=== PATIENT | female | born 1955 | race Asian ===

== ENCOUNTER → 2016-09-29 | Outpatient (REF) | payer OTHER ==
[2016-09-29 14:39] LABS: ALBUMIN 3.8 GM/DL (3.2-5.2); ALBUMIN/GLOBULIN RATIO 0.97 (1.00-1.93); ALKALINE PHOSPHATASE 45 U/L (45-117); ALT/SGPT 29 U/L (12-78); ANION GAP 9 MEQ/L (8-16); AST/SGOT 16 U/L (15-37); BILIRUBIN,TOTAL 0.4 MG/DL (0.2-1.0); BLOOD UREA NITROGEN 16 MG/DL (7-18); CARBON DIOXIDE LEVEL 26 MEQ/L (21-32); CHLORIDE LEVEL 108 MEQ/L (98-107); CHOLESTEROL LEVEL 213 MG/DL (<200); CREATININE FOR GFR 0.66 MG/DL (0.55-1.02); GLOMERULAR FILTRATION RATE > 60.0 (>45); GLUCOSE, FASTING 110 MG/DL (80-110); POTASSIUM SERUM 4.1 MEQ/L (3.5-5.1); SODIUM LEVEL 143 MEQ/L (136-145); TOTAL PROTEIN 7.7 GM/DL (6.4-8.2); TRIGLYCERIDES LEVEL 133 MG/DL (<150)
== END ==
LOC: M SFHCCLAY 08:40
PROVIDERS: ATTEND Family Medicine
DX: I10 Essential (primary) hypertension (principal)

== ENCOUNTER → 2016-12-08 | Outpatient (CLI) | payer OTHER ==
--- NOTE | 2016-12-08 12:08 | REP ---
Clinical: Cough. Technique: PA and lateral. Comparison: None. Findings: Mediastinum and cardiac silhouette are normal. Lung driver suggest mild chronic changes without focal consolidation, effusion, or pneumothorax. Skeletal structures are intact. Impression: No acute cardiopulmonary process or focal consolidation. If the patient remains symptomatic consider chest CT for further investigation as no prior examinations are available for comparison.
== END ==
LOC: M CLY 11:41
PROVIDERS: ATTEND Family Medicine
DX: R05 Cough (principal)

== ENCOUNTER → 2017-04-01 | Outpatient (REF) | payer OTHER ==
[2017-04-01 11:44] LABS: ALBUMIN 3.9 GM/DL (3.2-5.2); ALBUMIN/GLOBULIN RATIO 1.08 (1.00-1.93); ALKALINE PHOSPHATASE 50 U/L (45-117); ALT/SGPT 34 U/L (12-78); ANION GAP 8 MEQ/L (8-16); AST/SGOT 21 U/L (7-37); BILIRUBIN,TOTAL 0.4 MG/DL (0.2-1.0); BLOOD UREA NITROGEN 14 MG/DL (7-18); CALCIUM LEVEL 8.9 MG/DL (8.8-10.2); CARBON DIOXIDE LEVEL 27 MEQ/L (21-32); CHLORIDE LEVEL 108 MEQ/L (98-107); CHOLESTEROL LEVEL 226 MG/DL (<200); CHOLESTEROL RISK RATIO 3.183 (<5); CREATININE FOR GFR 0.59 MG/DL (0.55-1.02); GLOMERULAR FILTRATION RATE > 60.0 (>45); GLUCOSE, FASTING 120 MG/DL (80-110); HDL CHOLESTEROL 71 MG/DL (>40); LDL CHOLESTEROL 129.8 MG/DL (<100); NON-HDL-C 155 MG/DL; SODIUM LEVEL 143 MEQ/L (136-145); TOTAL PROTEIN 7.5 GM/DL (6.4-8.2); TRIGLYCERIDES LEVEL 126 MG/DL (<150)
== END ==
LOC: M SFHCCLAY 07:54
DX: I10 Essential (primary) hypertension (principal)

== ENCOUNTER → 2017-10-04 | Outpatient (CLI) | payer OTHER | LOC: M WHC 12:39 | DX: C50.311 Malignant neoplasm of lower-inner quadrant of right female breast (principal); Z17.0 Estrogen receptor positive status [ER+]; Z79.899 Other long term (current) drug therapy | CPT/HCPCS: 77080 ==

== ENCOUNTER → 2018-04-19 | Outpatient (REF) | payer OTHER ==
[2018-04-19 12:56] LABS: BASO # 0.1 10^3/uL (0.0-0.2); BASO % 1.1 % (0.0-1.0); EOS # 0.2 10^3/uL (0.0-0.50); EOS % 3.2 % (0.0-3.0); HEMATOCRIT 45.8 % (36.0-47.0); HEMOGLOBIN 15.2 g/dl (12.0-15.5); LYMPH # 2.2 10^3/uL (1.5-4.5); LYMPH % 39.1 % (24.0-44.0); MEAN CORPUSCULAR HEMOGLOBIN 30.2 pg (27.0-33.0); MEAN CORPUSCULAR HGB CONC 33.2 g/dl (32.0-36.5); MEAN CORPUSCULAR VOLUME 91.1 fl (80.0-96.0); MONO # 0.3 10^3/uL (0.0-0.8); NEUTROPHILS # 2.9 10^3/uL (1.8-7.7); NEUTROPHILS % 50.2 % (36.0-66.0); PLATELET COUNT, AUTOMATED 295 10^3/uL (150-450); RED BLOOD COUNT 5.03 10^6/uL (4.00-5.40); WHITE BLOOD COUNT 5.7 10^3/uL (4.0-10.0)
[2018-04-19 13:35] LABS: ALT/SGPT 37 U/L (12-78); BILIRUBIN,TOTAL 0.4 MG/DL (0.2-1.0); BLOOD UREA NITROGEN 19 MG/DL (7-18); CALCIUM LEVEL 9.2 MG/DL (8.8-10.2); CARBON DIOXIDE LEVEL 24 MEQ/L (21-32); CHLORIDE LEVEL 107 MEQ/L (98-107); CHOLESTEROL LEVEL 245 MG/DL (<200); CHOLESTEROL RISK RATIO 3.223 (<5); CREATININE FOR GFR 0.61 MG/DL (0.55-1.30); GLOMERULAR FILTRATION RATE > 60.0 (>45); GLUCOSE, FASTING 97 MG/DL (70-100); HDL CHOLESTEROL 76 MG/DL (>40); LDL CHOLESTEROL 145 MG/DL (<100); NON-HDL-C 169 MG/DL; POTASSIUM SERUM 4.6 MEQ/L (3.5-5.1); SODIUM LEVEL 138 MEQ/L (136-145); TOTAL PROTEIN 8.1 GM/DL (6.4-8.2); TRIGLYCERIDES LEVEL 118 MG/DL (<150)
== END ==
LOC: M SFHCCLAY 09:19
PROVIDERS: ATTEND Family Medicine
DX: I10 Essential (primary) hypertension (principal); E78.2 Mixed hyperlipidemia; C50.112 Malignant neoplasm of central portion of left female breast

== ENCOUNTER → 2020-01-23 | Outpatient (REF) | payer OTHER ==
[2020-01-23 16:58] LABS: BLOOD UREA NITROGEN 13 MG/DL (7-18); CALCIUM LEVEL 9.1 MG/DL (8.8-10.2); CARBON DIOXIDE LEVEL 24 MEQ/L (21-32); CHLORIDE LEVEL 105 MEQ/L (98-107); CREATININE FOR GFR 0.71 MG/DL (0.55-1.30); GLOMERULAR FILTRATION RATE > 60.0 (>45); GLUCOSE, FASTING 125 MG/DL (70-100); POTASSIUM SERUM 3.9 MEQ/L (3.5-5.1); SODIUM LEVEL 137 MEQ/L (136-145)
== END ==
LOC: M SFHCCLAY 10:09
PROVIDERS: ATTEND Family Medicine
DX: I11.9 Hypertensive heart disease without heart failure (principal)

== ENCOUNTER → 2020-02-27 | Outpatient (CLI) | payer SELFPAY | LOC: M LABSMTC 14:11 | PROVIDERS: ATTEND Pediatrics | DX: Z20.828 Contact with and (suspected) exposure to other viral communicable diseases (principal) ==

== ENCOUNTER → 2020-04-06 | Outpatient (CLI) | payer SELFPAY | LOC: M LABSMTC 10:27 | PROVIDERS: ATTEND Pediatrics | DX: Z20.822 Contact with and (suspected) exposure to COVID-19 (principal) ==

== ENCOUNTER → 2020-04-21 | Outpatient (CLI) | payer SELFPAY | LOC: M LABSMTC 10:17 | PROVIDERS: ATTEND Pediatrics | DX: Z20.822 Contact with and (suspected) exposure to COVID-19 (principal) ==

== ENCOUNTER 2020-04-28 10:21 | Emergency (ER) | payer OTHER ==
[~2020-04-28] VITALS: Ht 152.4 cm; Wt 88.9 kg
[~2020-04-28 10:21] MED LIST: LISI20TA33 PO
[2020-04-28] MEDS ORDERED: CHLO125TA (10:30)
--- OUTSIDE RECORDS SUMMARY | 2020-04-28 10:38 | CCD ---
Author Author [facility] Organization [facility] Address Unknown Phone Unavailable Care Team Providers Care Manager Baby Name Role Phone Ellne De nAda MD Unavailable Unavailable Ellen De Anda MD Unavailable Unavailable Ellen De Anda MD Unavailable Unavailable SivEllen tellez MD Unavailable Unavailable Ellen De Anda MD Unavailable Unavailable Ellen De Anda MD Unavailable Unavailable Ellen De Anda MD Unavailable Unavailable Ellen De Anda MD Unavailable Unavailable Ellen De Anda MD Unavailable Unavailable Ellen De Anda MD Unavailable Unavailable Ellen De Anda MD Unavailable Unavailable Ellen De Anda MD Unavailable Unavailable Ellen De Anda MD Unavailable Unavailable Ellen De Anda MD Unavailable Unavailable Ellen De Anda MD Unavailable Unavailable Ellen De Anda MD Unavailable Unavailable Ellen De Anda MD Unavailable Unavailable Sivapiragasam, Abirami MD Unavailable Unavailable Sivapiragasam, Abirami MD Unavailable Unavailable Sivapiragasam, Abirami MD Unavailable Unavailable Sivapiragasam, Abirami MD Unavailable Unavailable Sivapiragasam, Abirami MD Unavailable Unavailable Sivapiragasam, Abirami MD Unavailable Unavailable Sivapiragasam, Abirami MD Unavailable Unavailable Sivapiragasam, Abirami MD Unavailable Unavailable Sivapiragasam, Abirami MD Unavailable Unavailable Sivapiragasam, Abirami MD Unavailable Unavailable Sivapiragasam, Abirami MD Unavailable Unavailable Sivapiragasam, Abirami MD Unavailable Unavailable Sivapiragasam, Abirami MD Unavailable Unavailable Sivapiragasam, Abirami MD Unavailable Unavailable Sivapiragasam, Abirami MD Unavailable Unavailable Sivapiragasam, Abirami MD Unavailable Unavailable Sivapiragasam, Abirami MD Unavailable Unavailable Sivapiragasam, Abirami MD Unavailable Unavailable Sivapiragasam, Abirami MD Unavailable Unavailable Sivapiragasam, Abirami MD Unavailable Unavailable Sivapiragasam, Abirami MD Unavailable Unavailable Sivapiragasam, Abirami MD Unavailable Unavailable Sivapiragasam, Abirami MD Unavailable Unavailable Sivapiragasam, Abirami MD Unavailable Unavailable Sivapiragasam, Abirami MD Unavailable Unavailable Sivapiragasam, Abirami MD Unavailable Unavailable Sivapiragasam, Abirami MD Unavailable Unavailable Sivapiragasam, Abirami MD Unavailable Unavailable Sivapiragasam, Abirami MD Unavailable Unavailable Sivapiragasam, Abirami MD Unavailable Unavailable Sivapiragasam, Abirami MD Unavailable Unavailable Sivapiragasam, Abirami MD Unavailable Unavailable Sivapiragasam, Abirami MD Unavailable Unavailable Feola, T Marya PA Unavailable Unavailable Feola, T Marya PA Unavailable Unavailable Feola, T Marya PA Unavailable Unavailable Feola, T Marya PA Unavailable Unavailable Feola, T Marya PA Unavailable Unavailable Feola, T Marya PA Unavailable Unavailable Feola, T Marya PA Unavailable Unavailable Feola, T Marya PA Unavailable Unavailable Feola, T Marya PA Unavailable Unavailable Feola, T Marya PA Unavailable Unavailable Feola, T Marya PA Unavailable Unavailable Feola, T Marya PA Unavailable Unavailable Feola, T Marya PA Unavailable Unavailable Feola, T Marya PA Unavailable Unavailable Feola, T Marya PA Unavailable Unavailable Feola, T Mayra PA Unavailable Unavailable Feola, T Marya PA Unavailable Unavailable Feola, T Marya PA Unavailable Unavailable Feola, T Marya PA Unavailable Unavailable Feola, T Marya PA Unavailable Unavailable Feola, T Marya PA Unavailable Unavailable Feola, T Marya PA Unavailable Unavailable Feola, T Marya PA Unavailable Unavailable Feola, T Marya PA Unavailable Unavailable Feola, T Marya PA Unavailable Unavailable Feola, T Marya PA Unavailable Unavailable Feola, T Marya PA Unavailable Unavailable Feola, T Marya PA Unavailable Unavailable Feola, T Marya PA Unavailable Unavailable Feola, T Marya PA Unavailable Unavailable Feola, T Marya PA Unavailable Unavailable Feola, T Marya PA Unavailable Unavailable Feola, T Marya PA Unavailable Unavailable Feola, T Marya PA Unavailable Unavailable Feola, T Marya PA Unavailable Unavailable Feola, T Marya PA Unavailable Unavailable Feola, T Marya PA Unavailable Unavailable Re-disclosure Warning The records that you are about to access may contain information from federally-assisted alcohol or drug abuse programs. If such information is present, then the following federally mandated warning applies: This information has been disclosed to you from records protected by federal confidentiality rules (42 CFR part 2). The federal rules prohibit you from making any further disclosure of this information unless further disclosure is expressly permitted by the written consent of the person to whom it pertains or as otherwise permitted by 42 CFR part 2. A general authorization for the release of medical or other information is NOT sufficient for this purpose. The Federal rules restrict any use of the information to criminally investigate or prosecute any alcohol or drug abuse patient.The records that you are about to access may contain highly sensitive health information, the redisclosure of which is protected by Article 27-F of the [facility] Public Health law. If you continue you may have access to information: Regarding HIV / AIDS; Provided by facilities licensed or operated by the [facility] Office of Mental Health; or Provided by the [facility] Office for People With Developmental Disabilities. If such information is present, then the following [facility] mandated warning applies: This information has been disclosed to you from confidential records which are protected by state law. State law prohibits you from making any further disclosure of this information without the specific written consent of the person to whom it pertains, or as otherwise permitted by law. Any unauthorized further disclosure in violation of state law may result in a fine or detention sentence or both. A general authorization for the release of medical or other information is NOT sufficient authorization for further disc losure. Allergies and Adverse Reactions Type Description Substance Reaction Status Data Source(s ) Drug Class NO KNOWN ALLERGIES NO KNOWN ALLERGIES [facility] Family History Family Member Name Family Member Gender Family Member Status Date o f Status Description Data Source(s) Unknown Male Problem MEDENT ([facility], ) Encounters Encounter Providers Location Date Indications Data Source(s ) Outpatient Attender: Ellen De Anda MD 08/27/2020 1 2:00:00 AM [facility] O Attender: Marya QUICK 021 01:34:12 PM EST - 04/18/2020 03:43:25 PM EST [facility] ([facility] ) [place] [address] [address] 02/04/2020 12:00:00 AM EST eCW1 ([facility]) Outpatient [address] [facility] [facility] [place] [address] 01/22/2020 12:00:00 AM EDT eCW1 ([facility]) Outpatient Attender: Ellen De Anda MD [id number] 12/27/2019 12:00:00 AM EDT - 12/27/2019 03:35:56 PM T [facility] [address] [address] 07/13/2019 12:00:00 AM EDT eCW1 ([facility]) Immunizations Vaccine Date Status Description Data Source(s) INFLUENZA VIRUS VACCINE QUADRIVALENT (6 MOS AN D UP) 12/29/2019 12:00:00 AM EDT [facility] Drugs Medications Medication Brand Name Start Date Product Form Dose Route Admi nistrative Instructions Pharmacy Instructions Status Indications Reaction Description Data Source(s) 25 mg 01/23/2020 12:00:00 AM EDT tablet 30 TAKE ONE TABLET BY MOUTH EVERY MORNING WITH FOOD TAKE ONE TABLET BY MOUTH EVERY MORNING WITH FOOD SOLD: 01/24/2020 [facility] 25 mg 01/23/2020 12:00:00 AM EDT tablet 60 TAKE ONE TABLET BY MOUTH EVERY MORNING WITH FOOD TAKE ONE TABLET BY MOUTH EVERY MORNING WITH FOOD SOLD: 02/07/2020 [facility] 1 mg 12/27/2019 12:00:00 AM EDT tablet 30 TAKE ONE TABLET BY MOUTH DAILY TAKE ONE TABLET BY MOUTH DAILY SOLD: 12/29/2019 [facility] anastrozole 1 MG Oral Tablet Anastrozole 1 MG Oral Tab let (ARIMIDEX) Anastrozole 1 MG Oral Tablet (ARIMIDEX) 12/27/2019 12:00:00 AM EDT 1 mg Oral active Take 1 tablet by mouth daily [facility] Chlorthalidone 25 MG Oral Tablet Chlorthalidone 25 MG Oral Tablet (HYGROTON) Chlorthalidone 25 MG Oral Tablet (HYGROTON) 12/13/2019 12:00:00 AM EDT 25 mg Oral active Take 25 mg by mouth daily [facility] 25 mg 12/13/2019 12:00:00 AM EDT tablet 30 TAKE ONE TABLET BY MOUTH EVERY DAY TAKE ONE TABLET BY MOUTH EVERY DAY SOLD: 12/14/2019 [facility] atorvastatin 20 MG Oral Tablet Atorvastatin Calcium 20 MG Oral Tablet (LIPITOR) Atorvastatin Calcium 20 MG Oral Tablet (LIPITOR) 05/09/2019 12:00:00 AM EST 20 mg Oral active Take 20 mg by mouth [facility] Insurance Providers Payer name Policy type / Coverage type Policy ID Covered green party ID Covered green party's relationship to llamas Policy Llamas Plan Information [facility] [id number] [employer] [place] [employer] [id number] Self [id number] [facility] [id number] SP [id number] [facility] COMMUNITY PLAN [facility] [id number] SP [id number] [facility] [id number] SP [id number] SELF PAY ONLY [id number] SP [id number] [facility] Finisar PLUS [id number] SP [id number] [facility] [id number] Self [id number] ANSI-Commercial [id number] [facility] Plan [id number] 18 [id number] [employer] [place] CHOICE PLUS [id number] SP [id number] ANSI-Commercial [id number] [facility] Plan UNAVAILABLE 18 UNAVAILABLE [facility] [place] O [id number] S [id number] [facility] Medigap Part B [id number] Self [id number] [employer] Commercial [id number] Self [id number] [employer] [place] [id number] SP [id number] SP [id number] 1 [facility] [place] [id number] SP [id number] [facility] O [id number] S [id number] [employer] [facility] O [id number] S [id number] UNITED [facility] O [id number] S [id number] UNITED [facility] O [id number] S [id number] UNITED [facility] O [id number] S [id number] SELF PAY UNAVAILABLE SP UNAVAILA BLE [facility] [id number] SP [id number] [facility] [place] UNAVAILABLE UNAVAILABLE [facility] [id number] SP [id number] [employer] MEDICAID MCD HMO [id number] S [id number] Problems, Conditions, and Diagnoses Code Display Name Description Problem Type Effective Dates Data Source(s) I11.9 60147674 Hypertensive heart disease without heart failure Problem 01/22/2020 12:00:00 AM EDT eCW1 ([facility]) Results ID Date Data Source [id number] 04/21/2020 12:00:00 AM EST [facility] Name Value Range Interpretation Code Description Data Devi rce(s) Supporting Document(s) SARS-CoV-2 (COVID-19) RNA [Presence] in Respiratory specimen by CARLOS with probe detection Positive for 2019-nCoV [facility] This lab was ordered by [facility] and reported by [employer] ID Date Data Source [id number] 04/18/2020 12:00:00 AM EST [facility] Name Value Range Interpretation Code Description Data Devi rce(s) Supporting Document(s) Carestart Rapid COVID Antigen Test Positive [facility] This lab was reported by [facility] Holger wooten. ID Date Data Source [id number] 04/06/2020 12:00:00 AM EST [facility] Name Value Range Interpretation Code Description Data Devi rce(s) Supporting Document(s) SARS-CoV-2 (COVID-19) RNA [Presence] in Respiratory specimen by CARLOS with probe detection Not Detected [facility] This lab was ordered by [facility] and reported by [employer] ID Date Data Source [id number] 02/27/2020 12:00:00 AM EST [facility] Name Value Range Interpretation Code Description Data Devi rce(s) Supporting Document(s) 2019-nCoV RNA XXX CARLOS+probe-Imp [facility] This lab was ordered by [facility] and reported by [employer] ID Date Data Source [id number] 01/03/2020 06:52:57 AM EDT [facility] Name Value Range Interpretation Code Description Data Devi rce(s) Supporting Document(s) Progress Note [facility] [id number] m [file] [id number] Procedure Social History Code Duration Value Status Description Data Source(s ) Smoking 01/22/2020 12:00:00 AM EDT Never Smoker completed Never S moker eCW1 ([facility]) Smoking 01/22/2020 12:00:00 AM EDT Never Smoker completed Never S moker eCW1 ([facility]) Alcohol intake 12/27/2019 12:00:00 AM EDT Current drinker of al cohol (finding) completed Current drinker of alcohol (finding) [facility] Tobacco use and exposure 12/27/2019 12:00:00 AM EDT Never used co mpleted Never used [facility] Smoking 12/27/2019 12:00:00 AM EDT Never smoker completed Never s [facility] Vital Signs ID Date Data Source UNK Name Value Range Interpretation Code Description Data Source(s) Diastolic blood pressure 76 mm[Hg] 76 mm[Hg] eCW1 ([facility]) Systolic blood pressure 123 mm[Hg] 123 mm[Hg] e CW1 ([facility]) Body temperature 98.6 [degF] 98.6 [degF] eCW1 ( [facility]) Respiratory rate 16 /min 16 /min eCW1 ([facility]) Heart rate 95 /min 95 /min eCW1 ([facility]) Body mass index (BMI) [Ratio] 38.11 kg/m2 38.11 kg/m2 eCW1 ([facility]) Body height 60.5 [in_i] 60.5 [in_i] eCW1 ([facility]) Body weight 198.4 [lb_av] 198.4 [lb_av] eCW1 ([facility]) Patient Treatment Plan of Care Planned Activity Planned Date Details Description Data Source (s) anastrozole 1 MG Oral Tablet 12/27/2019 12:00:00 AM [facility] Chlorthalidone 25 MG Oral Tablet 12/13/2019 12:00:00 AM [facility] atorvastatin 20 MG Oral Tablet 05/09/2019 12:00:00 AM [facility]
--- OUTSIDE RECORDS SUMMARY | 2020-04-28 10:38 | CCD ---
Author Author [facility] Organization [facility] Address Unknown Phone Unavailable Care Team Providers Care Manager Fashion Name Role Phone Milvia Mcconnell Unavailable PROBLEMS Type Condition ICD9-CM Code [id number] Code Onset Dates Condition S tatus SNOMED Code Notes Problem Malignant neoplasm of central portion of left female breas t C50.112 Active 865644058 Problem Hypertensive heart disease without heart failure I 11.9 Active 59714506 Problem Abnormal mammogram R92.8 Active 534510761 Problem Breast lesion on mammography R92.8 Active 274 905152 Problem Obesity due to excess calories, unspecified obesity severi ty E66.09 Active 171453269 Problem Mixed hyperlipidemia E78.2 Active 474859516 ALLERGIES No Known Allergies ENCOUNTERS from 1955 to 2020 Encounter Location Date Provider Diagnosis [facility] [address] [place] [id number] Dec Milvia Mcconnell Hypertensive heart disease without heart failure I11.9 IMMUNIZATIONS Vaccine Route Administration Date Status TDAP 0.5mL (Boostrix) IM Intramuscular September 25, 2014 Administe red Pneumococcal 0.5mL (Prevnar 13) IM Intramuscular Dec 08, 2016 Administered Influenza (6mo & up) Fluzone IM Intramuscular Dec 08, 2016 Ad ministered Influenza (6mo & up) Fluzone IM Intramuscular Dec 25, 2015 Ad ministered SOCIAL HISTORY Tobacco Use: Social History Observation Description Date Details (start date - stop date) Never Smoker Sex Assigned At : Social History Observation Description Sex Assigned At Unknown Education: Question Answer Notes Level of Education: Finished High School Audit Question Answer Notes Total Score: 4 Interpretation: Alcohol Education Language: Question Answer Notes Languages spoken: Pakistani Mandaen: Question Answer Notes Mandaen 99 Other Sexual Hx: Question Answer Notes Had sex in the last 12 months (vaginal, oral, or anal)? No Have you ever had an STD? No Drug and Alcohol Question Answer Notes Total Score: 0 Interpretation: No problems reported BMI Care Goal Follow-Up Question Answer Notes Above Normal BMI Follow-Up Giving encouragement to exercise Tobacco Use: Question Answer Notes Are you a: never smoker REASON FOR REFERRAL No Information VITAL SIGNS Weight 198.4 lbs Dec, Height 60.5 in Dec, BMI 38.11 kg/m2 Dec, Heart Rate 95 /min Dec, Respiratory Rate 16 /min Dec, Temperature 98.6 degrees Fahrenheit Dec, Oximetry 98ra Dec, Blood pressure systolic 123 mm Hg Dec, Blood pressure diastolic 76 mm Hg Dec, MEDICATIONS Medication SIG (Take, Route, Frequency, Duration) Start Date En d Date Status Vitamin C Orally Active Chlorthalidone 25 MG 1 tablet in the morning with food Orally Once a day for 90 days Active Multivitamin Orally Active Letrozole 2.5 MG TAKE ONE TABLET BY MOUTH EVERY DAY Oral Active [facility] Vitamin B-1 100 MG 1 tablet Orally Once a day Oct, Active PROCEDURES No Information RESULTS No Results REASON FOR VISIT follow up blood pressure MEDICAL (GENERAL) HISTORY Type Description Date Medical History Pneumonia x 1 Medical History Breast lesion on mammography Medical History Rt side breast cancer-Upsate oncology Medical History Both hands numb-side effect of cancer me d Surgical History Ligation 1979 Surgical History 1979 Surgical History Double masectomy 04/2015 Hospitalization History [facility] 1979 Goals Section No Information Health Concerns No Information MEDICAL EQUIPMENT No Information MENTAL STATUS No Information FUNCTIONAL STATUS No Information ASSESSMENTS Encounter Date Diagnosis Notes Dec, Hypertensive heart disease without heart failure (ICD-10 - I11.9) PLAN OF TREATMENT Medication Medication Name Sig Start Date Stop Date Chlorthalidone 25 MG 1 tablet in the morning with food Orally Once a day for 90 days Treatment Notes Assessment Notes Clinical Notes Hypertensive heart disease without heart failure Blood pressure has improved with chlorthalidone. Continue current medication. Refill sent. Order placed for BMP to monitor electrolytes, renal function. Next Appt Details 3 Months: [place] Reason: Insurance Providers Payer Name Payer Address Payer Phone Insured Name Patient Relati onship to Insured Coverage Start Date Coverage End Date [facility] [place] [id number] [facility] [id number] self
--- OUTSIDE RECORDS SUMMARY | 2020-04-28 10:38 | CCD ---
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 female breas t C50.112 Active 537012568 Problem Hypertensive heart disease without heart failure I 11.9 Active 85374912 Problem Abnormal mammogram R92.8 Active 417539050 Problem Breast lesion on mammography R92.8 Active 274 256115 Problem Obesity due to excess calories, unspecified obesity severi ty E66.09 Active 134473527 Problem Mixed hyperlipidemia E78.2 Active 536328780 ALLERGIES No Known Allergies ENCOUNTERS from 1955 to 2020-02-05 Encounter Location Date Provider Diagnosis [facility] [address] [place] [address] Jan Brittani Rivera IMMUNIZATIONS Vaccine Route Administration Date Status TDAP [...] Education Language: Question Answer Notes Languages spoken: Latvian Episcopalian: Question Answer Notes Episcopalian 99 Other Sexual Hx: Question Answer Notes [...] REASON FOR REFERRAL No Information VITAL SIGNS No information MEDICATIONS Medication SIG (Take, Route, Frequency, Duration) Start Date En d Date Status Letrozole 2.5 MG TAKE ONE TABLET BY MOUTH EVERY DAY Oral Active Chlorthalidone 25 MG 1 tablet in the morning with food Orally Once a day for 90 days Active [facility] Vitamin B-1 100 MG 1 tablet Orally Once a day Oct, Active Vitamin C Orally Active Lisinopril 20 MG 1 tablet Orally Once a day for 90 days Active Multivitamin Orally Active PROCEDURES No Information RESULTS No Results REASON FOR VISIT REFILL MEDICAL (GENERAL) HISTORY Type Description Date Medical History Pneumonia x 1 Medical History Breast lesion on mammography Medical History Rt side breast cancer-Upsate oncology Medical History Both hands numb-side effect of cancer me d Surgical History Ligation 1979 Surgical History 1979 Surgical History Double masectomy 04/2015 Hospitalization History [facility] 1979 Goals Section No Information Health Concerns No Information MEDICAL EQUIPMENT No Information MENTAL STATUS No Information FUNCTIONAL STATUS No Information ASSESSMENTS No Information PLAN OF TREATMENT Medication Medication Name Sig Start Date Stop Date Chlorthalidone 25 MG 1 tablet in the morning with food Orally Once a day for 90 days Lisinopril 20 MG 1 tablet Orally Once a day for 90 days Insurance Providers Payer Name Payer Address Payer Phone Insured Name Patient Relati onship to Insured Coverage Start Date Coverage End Date [facility] [address] [address] [id number] [facility] [id number] MOREQUIO self
[2020-04-28 12:22] LABS: HEMATOCRIT 38.9 % (36.0-47.0); MEAN CORPUSCULAR HGB CONC 33.4 g/dl (32.0-36.5); MEAN CORPUSCULAR VOLUME 89.8 fl (80.0-96.0); PLATELET COUNT, AUTOMATED 346 10^3/uL (150-450); RED BLOOD COUNT 4.33 10^6/uL (4.00-5.40); WHITE BLOOD COUNT 5.1 10^3/uL (4.0-10.0)
--- OUTSIDE RECORDS SUMMARY | 2020-04-28 12:53 | CCD ---
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 If you continue you may have access to information: Regarding HIV / AIDS; Provided by facilities licensed or operated by the [facility] Office of Mental Health; or Provided by the [facility] Office for People With Developmental Disabilities. If such information is present, then the following [facility] mandated warning applies: This information has been [...] law may result in a fine or mcc sentence or both. A general authorization for the release of medical or other information is NOT sufficient authorization for further disc losure. Allergies and Adverse Reactions Type Description Substance Reaction Status Data Source(s ) Drug Class NO KNOWN ALLERGIES NO KNOWN ALLERGIES [facility] Family History Family Member Name Family Member Gender Family Member Status Date o f Status Description Data Source(s) Unknown Male Problem MEDENT ([facility], ) Encounters Encounter Providers Location Date Indications Data Source(s ) Outpatient Attender: Ellen De Anda MD 08/27/2020 1 2:00:00 AM [facility] O Attender: Marya QUICK 021 01:34:12 PM EST - 04/18/2020 03:43:25 PM EST [facility] ([facility] ) Unknown [address] [facility] [place] [address] 02/04/2020 12:00:00 AM EST eCW1 ([facility]) Outpatient [address] [facility] [place] [address] 01/22/2020 12:00:00 AM EDT eCW1 ([facility]) Outpatient Attender: Ellen De Anda MD [id number] 12/27/2019 12:00:00 AM EDT - 12/27/2019 03:35:56 PM T [facility] [address] [facility] [address] 07/13/2019 12:00:00 AM EDT eCW1 ([facility]) Immunizations Vaccine Date Status Description Data Source(s) INFLUENZA VIRUS VACCINE QUADRIVALENT (6 MOS AN D UP) 12/29/2019 12:00:00 AM EDT [facility] Medications Medication Brand Name Start Date [...] active Take 1 tablet by mouth daily [facility] Chlorthalidone 25 MG Oral Tablet Chlorthalidone 25 MG Oral Tablet (HYGROTON) Chlorthalidone 25 MG Oral Tablet (HYGROTON) 12/13/2019 12:00:00 AM EDT 25 mg Oral active Take 25 mg by mouth daily [facility] 25 mg 12/13/2019 12:00:00 AM EDT tablet 30 TAKE ONE TABLET BY MOUTH EVERY DAY TAKE ONE TABLET BY MOUTH EVERY DAY SOLD: 12/14/2019 [facility] atorvastatin 20 MG Oral Tablet Atorvastatin Calcium 20 MG Oral Tablet (LIPITOR) Atorvastatin Calcium 20 MG Oral Tablet (LIPITOR) 05/09/2019 12:00:00 AM EST 20 mg Oral active Take 20 mg by mouth [facility] Insurance Providers Payer name Policy type / Coverage type Policy ID Covered republican ID Covered republican's relationship to llamas Policy Llamas Plan Information [facility] [id number] [employer] [id number] Self [id number] [facility] [id number] SP [id number] [facility] [id number] SP [id number] [facility] [id number] SP [id number] SELF PAY ONLY [id number] SP [id number] [facility] [employer] PLUS [id number] SP [id number] [facility] [id number] Self [id number] ANSI-Commercial [id number] [facility] Plan [id number] 18 [id number] [employer] [place] CHOICE PLUS [id number] SP [id number] ANSI-Commercial [id number] [facility] Plan UNAVAILABLE 18 UNAVAILABLE [facility] [employer] O [id number] S [id number] [employer] Medigap Part B [id number] Self [id number] [facility] Commercial [id number] Self [id number] [employer] [place] [id number] SP [id number] SP [id number] 1 [facility] [place] [id number] SP [id number] [facility] O [id number] S [id number] [employer] O [id number] S [id number] [facility] O [id number] S [id number] [employer] O [id number] S [id number] [employer] O [id number] S [id number] SELF PAY UNAVAILABLE SP [facility] [id number] SP [id number] [facility] [place] UNAVAILABLE UNAVAILABLE [employer] [facility] [id number] SP [id number] [employer] MEDICAID MCD HMO [id number] S [id number] Problems, Conditions, and Diagnoses Code Display Name Description Problem Type Effective Dates Data Source(s) I11.9 [id number] Hypertensive heart disease without heart failure Problem 01/22/2020 12:00:00 AM EDT eCW1 ([facility]) Results ID Date Data Source [id number] 04/21/2020 12:00:00 AM EST [facility] Name Value Range Interpretation Code Description Data Devi rce(s) Supporting Document(s) SARS-CoV-2 (COVID-19) RNA [Presence] in Respiratory specimen by CARLOS with probe detection Positive for 2019-nCoV [facility] This lab was ordered by [facility] and reported by [employer] ID Date Data Source [id number] 04/18/2020 12:00:00 AM EST [facility] Name Value Range Interpretation Code Description Data Devi rce(s) Supporting Document(s) Carestart Rapid COVID Antigen Test Positive [facility] This lab was reported by [facility] Holger wooten. ID Date Data Source [id number] 04/06/2020 12:00:00 AM EST [facility] Name Value Range Interpretation Code Description Data Devi rce(s) Supporting Document(s) SARS-CoV-2 (COVID-19) RNA [Presence] in Respiratory specimen by CARLOS with probe detection Not Detected [facility] This lab was ordered by [facility] and reported by [employer] ID Date Data Source [id number] 02/27/2020 12:00:00 AM EST [facility] Name Value Range Interpretation Code Description Data Devi rce(s) Supporting Document(s) 2019-nCoV RNA XXX CARLOS+probe-Imp [facility] This lab was ordered by [facility] and reported by [employer] ID Date Data Source [id number] 01/03/2020 06:52:57 AM EDT [facility] Name Value Range Interpretation Code Description Data Devi rce(s) Supporting Document(s) Progress Note [facility] [id number] [file] [id number] Procedure Social History Code Duration Value Status Description Data Source(s ) Smoking 01/22/2020 12:00:00 AM EDT Never Smoker completed Never S moker eCW1 ([facility]) Smoking 01/22/2020 12:00:00 AM EDT Never Smoker completed Never S moker eCW1 ([facility]) Alcohol intake 12/27/2019 12:00:00 AM EDT Current drinker of al cohol (finding) completed Current drinker of alcohol (finding) [facility] Tobacco use and exposure 12/27/2019 12:00:00 AM EDT Never used co mpleted Never used [facility] Smoking 12/27/2019 12:00:00 AM EDT Never smoker completed Never s [facility] Vital Signs ID Date Data Source UNK Name Value Range Interpretation Code Description Data Source(s) Diastolic blood pressure 76 mm[Hg] 76 mm[Hg] eCW1 ([facility]) Systolic blood pressure 123 mm[Hg] 123 mm[Hg] e CW1 ([facility]) Body temperature 98.6 [degF] 98.6 [degF] eCW1 ( [facility]) Respiratory rate 16 /min 16 /min eCW1 ([facility] Heart rate 95 /min 95 /min eCW1 ([facility]) Body mass index (BMI) [Ratio] 38.11 kg/m2 38.11 kg/m2 eCW1 ([facility]) Body height 60.5 [in_i] 60.5 [in_i] eCW1 ([facility]) Body weight 198.4 [lb_av] 198.4 [lb_av] eCW1 ([facility]) Patient Treatment Plan of Care Planned Activity Planned Date Details Description Data Source (s) anastrozole 1 MG Oral Tablet 12/27/2019 12:00:00 AM [facility] Chlorthalidone 25 MG Oral Tablet 12/13/2019 12:00:00 AM [facility] atorvastatin 20 MG Oral Tablet 05/09/2019 12:00:00 AM [facility]
[2020-04-28 13:56] LABS: BLOOD UREA NITROGEN 10 MG/DL (7-18); CALCIUM LEVEL 9.5 MG/DL (8.8-10.2); CARBON DIOXIDE LEVEL 28 MEQ/L (21-32); CHLORIDE LEVEL 104 MEQ/L (98-107); CREATININE FOR GFR 0.57 MG/DL (0.55-1.30); GLOMERULAR FILTRATION RATE > 60.0 (>45); GLUCOSE, FASTING 106 MG/DL (70-100); POTASSIUM SERUM 3.8 MEQ/L (3.5-5.1); SODIUM LEVEL 138 MEQ/L (136-145)
[2020-04-28 15:00] VITALS: BP 136/89
== END 2020-04-28 15:00 | disposition home or self-care (01) ==
LOC: M ED 10:21 → MERGE 10:21 → M ED 15:00
DX: U07.1 COVID-19 (principal); K92.1 Melena; I10 Essential (primary) hypertension; Z79.899 Other long term (current) drug therapy

== ENCOUNTER → 2020-06-05 | Outpatient (REF) | payer OTHER ==
[~2020-06-05] MED LIST changes: +CHLO125TA
[2020-06-05 12:04] LABS: ALBUMIN 3.7 GM/DL (3.2-5.2); ALT/SGPT 36 U/L (12-78); BILIRUBIN,TOTAL 0.5 MG/DL (0.2-1.0); BLOOD UREA NITROGEN 10 MG/DL (7-18); CALCIUM LEVEL 9.6 MG/DL (8.8-10.2); CARBON DIOXIDE LEVEL 27 MEQ/L (21-32); CHLORIDE LEVEL 107 MEQ/L (98-107); CHOLESTEROL LEVEL 215 MG/DL (<200); CHOLESTEROL RISK RATIO 2.756 (<5); CREATININE FOR GFR 0.65 MG/DL (0.55-1.30); GLOMERULAR FILTRATION RATE > 60.0 (>45); GLUCOSE, FASTING 134 MG/DL (70-100); HDL CHOLESTEROL 78 MG/DL (>40); LDL CHOLESTEROL 107 MG/DL (<100); NON-HDL-C 137 MG/DL; POTASSIUM SERUM 4.1 MEQ/L (3.5-5.1); SODIUM LEVEL 140 MEQ/L (136-145); TOTAL PROTEIN 7.8 GM/DL (6.4-8.2); TRIGLYCERIDES LEVEL 151 MG/DL (<150)
== END ==
LOC: M SFHCCLAY 07:52
PROVIDERS: ATTEND Family Medicine
DX: I11.9 Hypertensive heart disease without heart failure (principal); E78.2 Mixed hyperlipidemia

== ENCOUNTER → 2020-06-16 | Outpatient (REF) | payer OTHER ==
[2020-06-16 15:37] LABS: HEMOGLOBIN A1c 6.6 %
== END ==
LOC: M SFHCCLAY 08:06
PROVIDERS: ATTEND Family Medicine
DX: R73.01 Impaired fasting glucose (principal)

== ENCOUNTER → 2020-07-19 | Outpatient (CLI) | payer OTHER ==
[~2020-07-19] MED LIST changes: +ATOR1TAB21 PO; +VITMTA PO
== END ==
LOC: M LABSMTC 09:36
PROVIDERS: ATTEND Anesthesiology
DX: Z01.818 Encounter for other preprocedural examination (principal); Z11.52 Encounter for screening for COVID-19

== ENCOUNTER 2020-07-24 10:41 | Day surgery (SDC) | payer OTHER ==
[~2020-07-24] VITALS: Ht 157.5 cm; Wt 87.1 kg
[~2020-07-24 10:41] MED LIST changes: +LIDOCAINE 2% 100MG/5ML SDV (FOR ANES.) As Ordered ONE; +NS 1,000 ML IV ONE; +propofoL 200 MG/20 ML VIAL As Ordered ONE
--- NOTE | 2020-07-24 13:00 | ROOR ---
Patient Name: Gloria Villalba Procedure Date: 07/24/2020 12:38 PM Date of : 1955 Age: 65 Room: [facility] Gender: Female Note Status: Finalized Procedure: Colonoscopy Indications: Screening for colorectal malignant neoplasm Providers: Hemanth Drummond Jr, MD Referring MD: Milvia ALCAZAR DO Requesting Provider: Medicines: Propofol per Anesthesia Complications: No immediate complications. Procedure: Pre-Anesthesia Assessment: - Prior to the procedure, a History and Physical was performed, and patient medications and allergies were reviewed. The patient is competent. The risks and benefits of the procedure and the sedation options and risks were discussed with the patient. All questions were answered and informed consent was obtained. Patient identification and proposed procedure were verified by the physician and the nurse in the pre-procedure area and in the procedure room. Mental Status Examination: alert and oriented. Airway Examination: normal oropharyngeal airway and neck mobility. Respiratory Examination: clear to auscultation. CV Examination: normal. ASA Grade Assessment: II - A patient with mild systemic disease. After reviewing the risks and benefits, the patient was deemed in satisfactory condition to undergo the procedure. The anesthesia plan was to use moderate sedation / analgesia (conscious sedation). Immediately prior to administration of medications, the patient was re-assessed for adequacy to receive sedatives. The heart rate, respiratory rate, oxygen saturations, blood pressure, adequacy of pulmonary ventilation, and response to care were monitored throughout the procedure. The physical status of the patient was re-assessed after the procedure. The Colonoscope was introduced through the anus and advanced to the cecum, identified by appendiceal orifice and ileocecal valve. The colonoscopy was performed without difficulty. The patient tolerated the procedure well. The quality of the bowel preparation was adequate. Findings: The rectum, sigmoid colon, descending colon, ascending colon, cecum, appendiceal orifice and ileocecal valve appeared normal. A diminutive polyp was found in the transverse colon. The polyp was sessile. The polyp was removed with a cold snare. Resection and retrieval were complete. Impression: - The rectum, sigmoid colon, descending colon, ascending colon, cecum, appendiceal orifice and ileocecal valve are normal. - One diminutive polyp in the transverse colon, removed with a cold snare. Resected and retrieved. Recommendation: - Discharge patient to home (ambulatory). - Repeat colonoscopy in 5-10 years for surveillance. Procedure Code(s): --- Professional --- 16198, Colonoscopy, flexible; with removal of tumor(s), polyp(s), or other lesion(s) by snare technique Diagnosis Code(s): --- Professional --- Z12.11, Encounter for screening for malignant neoplasm of colon K63.5, Polyp of colon CPT copyright 2019 [employer]. All rights reserved. The codes documented in this report are preliminary and upon tiler review may be revised to meet current compliance requirements. Hemanth Drummond MD Hemanth Drummond Jr, MD 07/24/2020 12:59:43 PM Electronically signed by Hemanth Drummond Jr, MD Number of Addenda: 0 Note Initiated On: 07/24/2020 12:38 PM Estimated Blood Loss: Estimated blood loss: none.
[2020-07-24 13:30] VITALS: BP 139/77
== END 2020-07-24 13:33 | disposition home or self-care (01) ==
LOC: M OPP 10:41
PROVIDERS: ATTEND Surgery
DX: Z12.11 Encounter for screening for malignant neoplasm of colon (principal); D12.6 Benign neoplasm of colon, unspecified; K57.30 Diverticulosis of large intestine without perforation or abscess without bleeding; E11.9 Type 2 diabetes mellitus without complications; I10 Essential (primary) hypertension; E78.5 Hyperlipidemia, unspecified; Z79.899 Other long term (current) drug therapy

== ENCOUNTER → 2020-09-24 | Outpatient (REF) | payer OTHER ==
[~2020-09-24] MED LIST changes: -LIDOCAINE 2% 100MG/5ML SDV (FOR ANES.) As Ordered ONE; -NS 1,000 ML IV ONE; -propofoL 200 MG/20 ML VIAL As Ordered ONE
[2020-09-24 13:02] LABS: BLOOD UREA NITROGEN 16 MG/DL (7-18); CALCIUM LEVEL 8.9 MG/DL (8.8-10.2); CARBON DIOXIDE LEVEL 25 MEQ/L (21-32); CHLORIDE LEVEL 109 MEQ/L (98-107); GLOMERULAR FILTRATION RATE > 60.0 (>45); GLUCOSE, FASTING 108 MG/DL (70-100); POTASSIUM SERUM 4.1 MEQ/L (3.5-5.1); SODIUM LEVEL 141 MEQ/L (136-145)
[2020-09-24 13:12] LABS: CREATININE, URINE 81.3 MG/DL; MAU/CREAT RATIO 147.6 MCG/MG (0.0-30.0)
[2020-09-24 13:18] LABS: HEMOGLOBIN A1c 6.6 %
== END ==
LOC: M SFHCCLAY 09:15
PROVIDERS: ATTEND Dietitian, Registered Nutrition, Metabolic
DX: E11.9 Type 2 diabetes mellitus without complications (principal)

== ENCOUNTER → 2021-02-23 | Outpatient (REF) | payer OTHER ==
[2021-02-23 13:04] LABS: HEMOGLOBIN A1c 7.3 %
[2021-02-23 13:05] LABS: BLOOD UREA NITROGEN 22 MG/DL (7-18); CALCIUM LEVEL 9.8 MG/DL (8.8-10.2); CARBON DIOXIDE LEVEL 29 MEQ/L (21-32); CHLORIDE LEVEL 101 MEQ/L (98-107); CREATININE FOR GFR 0.75 MG/DL (0.55-1.30); GLOMERULAR FILTRATION RATE > 60.0 (>45); GLUCOSE, FASTING 200 MG/DL (70-100); POTASSIUM SERUM 4.1 MEQ/L (3.5-5.1); SODIUM LEVEL 138 MEQ/L (136-145)
[2021-02-23 13:18] LABS: MAU/CREAT RATIO 122.2 MCG/MG (0.0-30.0)
== END ==
LOC: M SFHCCLAY 07:30
PROVIDERS: ATTEND Family Medicine
DX: E11.29 Type 2 diabetes mellitus with other diabetic kidney complication (principal); R80.9 Proteinuria, unspecified

== ENCOUNTER → 2022-11-25 | Outpatient (CLI) | payer OTHER | LOC: M CLY 10:45 | PROVIDERS: ATTEND Family Medicine | DX: Z53.9 Procedure and treatment not carried out, unspecified reason (principal) ==

== ENCOUNTER → 2022-11-25 | Outpatient (REF) | payer OTHER ==
[2022-11-25 17:46] LABS: ALBUMIN 3.7 G/DL (3.2-5.2); ALKALINE PHOSPHATASE 71 U/L (46-116); ALT/SGPT 36 U/L (7.0-40); AST/SGOT 16 U/L (<34); BILIRUBIN,TOTAL 0.5 MG/DL (0.3-1.2); BLOOD UREA NITROGEN 16 MG/DL (9-23); CALCIUM LEVEL 9.9 MG/DL (8.3-10.6); CARBON DIOXIDE LEVEL 26 MMOL/L (20-31); CHLORIDE LEVEL 102 MMOL/L (98-107); CHOLESTEROL LEVEL 174 MG/DL (<200); CHOLESTEROL RISK RATIO 2.28 (<5); CREATININE FOR GFR 0.44 MG/DL (0.55-1.30); GLOMERULAR FILTRATION RATE > 60.0 (>45); GLUCOSE, FASTING 252 MG/DL (74-106); HDL CHOLESTEROL 76.3 MG/DL (>40); LDL CHOLESTEROL 24.9 MG/DL (<100); NON-HDL-C 97.7 MG/DL; POTASSIUM SERUM 4.4 MMOL/L (3.5-5.1); SODIUM LEVEL 137 MMOL/L (136-145); TOTAL PROTEIN 7.4 G/DL (5.7-8.2); TRIGLYCERIDES LEVEL 364 MG/DL (<150)
== END ==
LOC: M SFHCCLAY 11:25
PROVIDERS: ATTEND Nurse Practitioner Family
DX: E78.5 Hyperlipidemia, unspecified (principal); I11.9 Hypertensive heart disease without heart failure; J30.2 Other seasonal allergic rhinitis; C50.112 Malignant neoplasm of central portion of left female breast; E11.29 Type 2 diabetes mellitus with other diabetic kidney complication

== ENCOUNTER → 2023-03-16 | Outpatient (CLI) | payer OTHER | LOC: M WHC 10:45 | PROVIDERS: ATTEND Physician Assistant | DX: N63.23 Unspecified lump in the left breast, lower outer quadrant (principal); Z85.3 Personal history of malignant neoplasm of breast ==

== ENCOUNTER → 2023-04-11 | Outpatient (CLI) | payer OTHER, SELFPAY | LOC: M WHC 12:08 | PROVIDERS: ATTEND Physician Assistant | DX: Z98.82 Breast implant status (principal); N63.23 Unspecified lump in the left breast, lower outer quadrant; Z85.3 Personal history of malignant neoplasm of breast; Z90.11 Acquired absence of right breast and nipple ==

== ENCOUNTER → 2023-09-26 | Outpatient (REF) | payer MEDICARE, MEDICAID ==
[2023-09-26 20:13] LABS: ALBUMIN 3.9 G/DL (3.2-5.2); BILIRUBIN,TOTAL 0.5 MG/DL (0.3-1.2); CALCIUM LEVEL 10.4 MG/DL (8.3-10.6); CHOLESTEROL RISK RATIO 3.13 (<5); CREATININE FOR GFR 1.05 MG/DL (0.55-1.30); GLOMERULAR FILTRATION RATE 55.7 (>45); HDL CHOLESTEROL 72.1 MG/DL (>40); LDL CHOLESTEROL 88.7 MG/DL (<100); NON-HDL-C 153.9 MG/DL; POTASSIUM SERUM 4.3 MMOL/L (3.5-5.1); TOTAL PROTEIN 7.9 G/DL (5.7-8.2)
[2023-09-26 20:30] LABS: HEMOGLOBIN A1c 9.8 % (4.0-6.0)
== END ==
LOC: M SFHCCLAY 10:56
PROVIDERS: ATTEND Nurse Practitioner Family
DX: N64.4 Mastodynia (principal); E11.29 Type 2 diabetes mellitus with other diabetic kidney complication; I11.9 Hypertensive heart disease without heart failure; E78.5 Hyperlipidemia, unspecified

== ENCOUNTER → 2023-12-30 | Outpatient (CLI) | payer MEDICARE, MEDICAID ==
[~2023-12-30] MED LIST changes: +PROHANCE 279.3MG/ML 15ML VIAL ONE; +PROHANCE 279.3MG/ML 5ML VIAL ONE
== END ==
LOC: M PLAIMG 11:59
PROVIDERS: ATTEND Physician Assistant Surgical
DX: N64.4 Mastodynia (principal); Z85.3 Personal history of malignant neoplasm of breast; Z98.86 Personal history of breast implant removal; Z90.13 Acquired absence of bilateral breasts and nipples
CPT/HCPCS: A9576; C8908

== ENCOUNTER → 2024-03-30 | Outpatient (REF) | payer MEDICARE, MEDICAID ==
[~2024-03-30] MED LIST changes: -PROHANCE 279.3MG/ML 15ML VIAL ONE; -PROHANCE 279.3MG/ML 5ML VIAL ONE
[2024-03-30 17:34] LABS: CREATININE, URINE 27.2 MG/DL; MALB URINE SIEMENS < 3.0 MG/L
[2024-03-30 17:36] LABS: ALKALINE PHOSPHATASE 58 U/L (35-104); ALT/SGPT 33 U/L (7.0-40); AST/SGOT 19 U/L (<34); BILIRUBIN,TOTAL 0.6 MG/DL (0.3-1.2); BLOOD UREA NITROGEN 20 MG/DL (9-23); CALCIUM LEVEL 10.5 MG/DL (8.3-10.6); CARBON DIOXIDE LEVEL 28 MMOL/L (20-31); CHLORIDE LEVEL 101 MMOL/L (98-107); CHOLESTEROL LEVEL 162 MG/DL (<200); CREATININE FOR GFR 0.69 MG/DL (0.55-1.30); GLOMERULAR FILTRATION RATE > 60.0 (>45); GLUCOSE, FASTING 184 MG/DL (74-106); HDL CHOLESTEROL 73.6 MG/DL (>40); LDL CHOLESTEROL 18.8 MG/DL (<100); NON-HDL-C 88.4 MG/DL; POTASSIUM SERUM 4.4 MMOL/L (3.5-5.1); SODIUM LEVEL 138 MMOL/L (136-145); TRIGLYCERIDES LEVEL 348 MG/DL (<150)
== END ==
LOC: M SFHCCLAY 11:38
PROVIDERS: ATTEND Nurse Practitioner Family
DX: E11.29 Type 2 diabetes mellitus with other diabetic kidney complication (principal); I11.9 Hypertensive heart disease without heart failure; E78.5 Hyperlipidemia, unspecified; J30.2 Other seasonal allergic rhinitis

== ENCOUNTER → 2025-03-19 | Outpatient (CLI) | payer MEDICARE, MEDICAID | LOC: M SLEEP HO 11:18 | PROVIDERS: ATTEND Nurse Practitioner Family | DX: G47.9 Sleep disorder, unspecified (principal); R06.83 Snoring ==